=== PATIENT | female | born 1995 | race Caucasian/White ===

== ENCOUNTER 2017-06-11 19:14 | Emergency (ER) | payer SELFPAY ==
[2017-06-11 19:41] VITALS: BP 133/101
--- NOTE | 2017-06-11 20:16 | EDM.PDOC ---
ED HPI GENERAL MEDICAL PROBLEM - General Chief Complaint: ENT Problem Stated Complaint: TOOTHACHE Time Seen by Provider: 06/11/17 20:00 Source of Information: Reports: Patient History Limitations: Reports: No Limitations - History of Present Illness INITIAL COMMENTS - FREE TEXT/NARRATIVE: 22-year-old female presents for evaluation treatment of dental pain. Patient reports that she's had dental pain for a while but has steadily been worsening she can no longer take the pain. Reports that the pain is located in her right lower molars. Reports that the pain extends into her right ear and her right sikhism. She denies any taste in her mouth, fevers, vomiting. She has appreciated some nausea due to the pain. Reports some right ear pain. Patient reports that she has poor dentition. She's had multiple broken teeth. She does not seem dental and last 2 years. She does not currently have a dental appointment but will try to get into them tomorrow. Treatments [employer]: Reports: NSAIDS right upper/lower jaw area Pain Score (Numeric/FACES): 10 - Related Data Allergies Allergy/AdvReac Type Severity Reaction Status Date / Time No Known Allergies Allergy Verified 06/11/17 19:41 Home Meds: Home Meds Acetaminophen/oxyCODONE [Percocet 325-5 MG] 1 tab PO Q6H PRN #15 tablet [Rx] Amoxicillin/Potassium Clav [Augmentin 500-125 Tablet] 1 each PO BID #20 tablet 06/11/17 [Rx] Past Medical History - Past Health History Medical/Surgical History: Denies Medical/Surgical History Social & Family History - Family History Family Medical History: Noncontributory - Tobacco Use Smoking Status *Q: Current Every Day Smoker Years of Tobacco use: 5 Packs/Tins Daily: 0.7 - Caffeine Use Caffeine Use: Reports: Soda - Recreational Drug Use Recreational Drug Use: No ED ROS ENT - Review of Systems Review Of Systems: See Below Constitutional: Denies: Fever HEENT: Reports: Dental Pain (left upper and left lower molars), Ear Pain (left) , Sinus Problem (left maxillary) GI/Abdominal: Reports: Nausea. Denies: Vomiting ED EXAM, ENT - Physical Exam Exam: See Below Exam Limited By: No Limitations General Appearance: Alert, WD/WN, Mild Distress Eye Exam: Bilateral Eye: Normal Inspection Ears: Normal External Exam, Normal Canal, Hearing Grossly Normal, Normal TMs Nose: Normal Inspection Mouth/Throat: Normal Inspection, Normal Lips, Normal Oropharynx, Normal Teeth, Dental Abcess (#17), Dental Pain (#17), Gum Swelling (#17), Other (hallitosis) Neck: Normal Inspection. No: Lymphadenopathy (L), Lymphadenopathy (R) Respiratory/Chest: No Respiratory Distress, Lungs Clear, Normal Breath Sounds Cardiovascular: Normal Peripheral Pulses, Regular Rate, Rhythm, No Murmur Neurological: Alert, Oriented, Normal Cognition Psychiatric: Normal Affect, Normal Mood, Tearful Course - Vital Signs Last Recorded V/S: Last Vital Signs Temp 36.3 C 06/11/17 19:37 Pulse 70 06/11/17 19:37 Resp 18 06/11/17 19:37 BP 133/101 H 06/11/17 19:37 Pulse Ox 97 06/11/17 19:37 - Re-Assessments/Exams Free Text/Narrative Re-Assessment/Exam: 06/11/17 20:11 I will start the patient on Augmentin twice a day for 10 days for suspected dental infection. She does have halitosis and sinus pain. There is a infection in her left molars. Discharge instructions as documented. Departure - Departure Time of Disposition: 20:11 Disposition: Home, Self-Care 01 Condition: Fair Clinical Impression: Dental abscess, Dental caries extending into dentin - Discharge Information Prescriptions: Acetaminophen/oxyCODONE [Percocet 325-5 MG] 1 tab PO Q6H PRN #15 tablet PRN Reason: Pain Amoxicillin/Potassium Clav [Augmentin 500-125 Tablet] 1 each PO BID #20 tablet Instructions: Dental Caries, Dental Abscess, [id number] Referrals: PCP,None [Primary Care Provider] - Forms: ED Department Discharge Additional Instructions: Augmentin 1 tablet twice a day for 10 days. Recommend you take this with food. Recommend yogurt or probiotic as this medication can be hard on her stomach and can cause diarrhea and upset stomach. Iesc-elf-[id number] ibuprofen 600mg every 6 hours for pain relief. For pain not relieved by ibuprofen, may take Percocet 1 tab every 4-[address] operate machinery within 12 hours of taking the Percocet. Percocet can be habit- forming, I recommend you take as few of these as needed to control your pain. Follow up with a dentist as soon as you are able to. Please return to the ER if your symptoms change or worsen.
== END 2017-06-11 20:35 | disposition home or self-care (01) ==
LOC: JD.ED 19:14
DX: K04.7 Periapical abscess without sinus (principal); K02.9 Dental caries, unspecified; F17.210 Nicotine dependence, cigarettes, uncomplicated
CPT/HCPCS: 99283

== ENCOUNTER 2017-08-06 03:31 | Emergency (ER) | payer SELFPAY ==
[2017-08-06 03:42] VITALS: BP 128/91
--- NOTE | 2017-08-06 03:48 | EDM.PDOC ---
ED HPI GENERAL MEDICAL PROBLEM - General Chief Complaint: ENT Problem Stated Complaint: TOOTHACHE Time Seen by Provider: 08/06/17 03:48 - History of Present Illness INITIAL COMMENTS - FREE TEXT/NARRATIVE: 22-year-old female presents emergency room with dental pain. Patient has right lower jaw and the back of her molars with worsening pain. The patient was seen for similar complaint at the end of May of this year she is awaiting a dental appointment on the of this month to have this fixed. Over the last several days her pain has been getting worse it's been especially bad over the last day. Patient denies any fevers or chills and has no other complaints at this point. She denies any possibility of at this point. Right Lower Tooth/Teeth Pain Score (Numeric/FACES): 10 - Related Data Allergies Allergy/AdvReac Type Severity Reaction Status Date / Time No Known Allergies Allergy Verified 08/06/17 03:42 Past Medical History - Past Health History Medical/Surgical History: Denies Medical/Surgical History Neurological History: Reports: Migraines Social & Family History - Family History Family Medical History: Noncontributory - Tobacco Use Smoking Status *Q: Current Every Day Smoker Years of Tobacco use: 3 Packs/Tins Daily: 0.5 - Caffeine Use Caffeine Use: Reports: None - Recreational Drug Use Recreational Drug Use: No ED ROS ENT - Review of Systems Review Of Systems: See Below Constitutional: Reports: No Symptoms HEENT: Reports: Dental Pain. Denies: Ear Pain, Sinus Problem Respiratory: Reports: No Symptoms Cardiovascular: Reports: No Symptoms GI/Abdominal: Reports: No Symptoms ED EXAM, ENT - Physical Exam Exam: See Below Exam Limited By: No Limitations General Appearance: Alert, Mild Distress (From her discomfort) Eye Exam: Bilateral Eye: Normal Inspection Ears: Normal External Exam, Normal Canal, Hearing Grossly Normal, Normal TMs Mouth/Throat: Normal Inspection, Normal Gums, Normal Lips, Normal Oropharynx, Other (Her right lower teeth, the rear 2 molars have significant dental decay and are quite tender the surrounding gums are mildly erythematous no obvious abscess the wisdom tooth is trying to come up does not look to be acutely involved.) Head: Atraumatic, Normocephalic Neck: Normal Inspection, Supple, Non-Tender, Full Range of Motion. No: Lymphadenopathy (L), Lymphadenopathy (R) Respiratory/Chest: No Respiratory Distress, Lungs Clear, Normal Breath Sounds Cardiovascular: Regular Rate, Rhythm, No Edema, No Murmur Course - Vital Signs Last Recorded V/S: Last Vital Signs Temp 36.7 C 08/06/17 03:39 Pulse 71 08/06/17 03:39 Resp 18 08/06/17 03:39 BP 128/91 H 08/06/17 03:39 Pulse Ox 99 08/06/17 03:39 - Orders/Labs/Meds Meds: Medications Discontinued Medications Generic Name Dose Route Start Last Admin Trade Name Ana PRN Reason Stop Dose Admin Clindamycin HCl 300 mg 08/06/17 04:08 08/06/17 04:13 Cleocin PO 08/06/17 04:09 300 mg ONETIME ONE Administration Oxycodone/Acetaminophen 1 tab 08/06/17 04:08 08/06/17 04:13 Percocet 325-5 Mg PO 08/06/17 04:09 1 tab ONETIME ONE Administration - Re-Assessments/Exams Free Text/Narrative Re-Assessment/Exam: 08/06/17 04:29 Patient will be started on clindamycin and Percocet she would like to get these at the machine in the waiting room, and will return in a few hours to get this done Departure - Departure Time of Disposition: 04:13 Disposition: Home, Self-Care 01 Clinical Impression: Dental caries extending into dentin - Discharge Information Referrals: PCP,None [Primary Care Provider] - Forms: ED Department Discharge Additional Instructions: Return to the emergency room with any questions or problems. Follow-up with your dentist on the as scheduled. You have been started on clindamycin this is an antibiotic he take one 4 times a day every 6 hours until all gone. You also have been started on Percocet this is a pain pill take one or 2 every 6 hours as needed for pain. Allow 12 hours after using this medication before driving or returning to work. Sometimes this medication can cause constipation and using a stool softener such as Colace 100 mg twice daily may be beneficial.
[2017-08-06] MEDS ORDERED: Clindamycin HCl 150 MG Cap PO ONE (04:08)
[2017-08-06] MEDS ORDERED: Acetaminophen/oxyCODONE 325-5 MG Tab PO ONE (04:08)
== END 2017-08-06 04:35 | disposition home or self-care (01) ==
LOC: JD.ED 03:31
DX: K02.9 Dental caries, unspecified (principal); F17.210 Nicotine dependence, cigarettes, uncomplicated
CPT/HCPCS: 99282; A9270; 99283